=== PATIENT | female | born 1970 | race Caucasian/White ===

== ENCOUNTER 2016-09-11 20:12 | Emergency (ER) | payer OTHER ==
[~2016-09-11] VITALS: Ht 165.1 cm; Wt 90.0 kg
[~2016-09-11 20:12] MED LIST: CHANTIX1 MG PO; CLEOCIN300 MG PO; CYCLOBENZAPR10 MG PO; FE TABS325 MG PO; FLEXERIL PO; FLEXERIL10 MG PO; LORTAB 1010 MG PO; LORTAB5 PO; NAPROSYN500 MG PO; NEXIUM40 M1 PO; NO HOME MEDS; NORCO1 TA2 PO; NORCO1 TAB PO; PEPCID20 MG PO; PREVACID15 M1 PO; PRILOSEC20 MG OR; PRILOSEC20 MG PO; PROTONIX40 M2 PO; TORADOL OR; ULTRAM50 M1 PO; ULTRAM50 MG OR; VICOPROFEN OR; ZOFRAN4 MG OR; ZPAK PO
[2016-09-11 22:25] VITALS: BP 154/88
== END 2016-09-11 22:28 | disposition home or self-care (01) | DRG 563 ==
LOC: ED 20:12
DX: S39.012A Strain of muscle, fascia and tendon of lower back, initial encounter (principal); F17.210 Nicotine dependence, cigarettes, uncomplicated; G89.29 Other chronic pain; M54.5 Low back pain; K21.9 Gastro-esophageal reflux disease without esophagitis; X58.XXXA Exposure to other specified factors, initial encounter; Z87.442 Personal history of urinary calculi

== ENCOUNTER 2017-02-08 14:26 | Emergency (ER) | payer OTHER ==
[~2017-02-08] VITALS: Ht 165.1 cm; Wt 80.0 kg
[~2017-02-08 14:26] MED LIST changes: +HYDROCODONE/ACE1 TAB PO; +TRAMADOL HCL50 MG PO
[2017-02-08] MEDS ORDERED: FLEXERIL PO (15:07)
[2017-02-08] MEDS ORDERED: HYDROCODONE/ACE1 TAB PO (15:07)
[2017-02-08 15:30] VITALS: BP 129/77
== END 2017-02-08 15:30 | disposition home or self-care (01) | DRG 93 ==
LOC: ED 14:26
DX: G89.29 Other chronic pain (principal); M54.5 Low back pain; F17.210 Nicotine dependence, cigarettes, uncomplicated; K21.9 Gastro-esophageal reflux disease without esophagitis; Z87.442 Personal history of urinary calculi

== ENCOUNTER 2017-08-03 09:03 | Emergency (ER) | payer MEDICAID ==
[~2017-08-03] VITALS: Ht 165.1 cm; Wt 100.0 kg
[~2017-08-03 09:03] MED LIST changes: +BACTRIM DS1 TAB PO; +PERCOCET 5/325M1 TAB PO; +PREDNISONE5 M2; +PROAIR HFA IN; +PROVENTIL0.083 % IN; +SPIRIVA HANDIHALER IN; +TORADOL PO; +TYLENOL & COD12.5 ML PO; +TYLENOL PM PO; +WELLBUTRIN100 M2 PO
[2017-08-03 09:53] LABS: IMMATURE GRANULOCYTES 0.5 % (0.0-1.0); MEAN CORPUSCULAR HGB 29.5 pG CALC (26.0-32.0); MEAN CORPUSCULAR HGB CONC 32.2 g/L CALC (32.0-36.0); NEUT# 5.06 thou/uL (2.00-7.15); RED BLOOD COUNT 4.74 mill/uL (4.20-5.60)
[2017-08-03 09:55] LABS: HEMATOCRIT 43.5 % (37.0-47.0); MEAN CELL VOLUME 91.8 fL CALC (80.0-100.0)
[2017-08-03 09:55] LABS: URINE BILIRUBIN - DIPSTICK NEGATIVE (NEGATIVE); URINE BLOOD DIPSTICK MODERATE (NEGATIVE); URINE COLOR YELLOW; URINE GLUCOSE - DIPSTICK NEGATIVE (NEGATIVE); URINE KETONE NEGATIVE (NEGATIVE); URINE LEUK ESTERASE NEGATIVE (NEGATIVE); URINE NITRITE - DIPSTICK NEGATIVE (Negative); URINE PH 5.5 (4.5-8.0); URINE PROTEIN - DIPSTICK NEGATIVE (NEG-TRACE); URINE SPECIFIC GRAVITY 1.015; URINE UROBILINOGEN - DIPSTICK 0.2 E.U./dL (0.2)
[2017-08-03 09:56] LABS: URINE CLARITY SL CLOUDY
[2017-08-03 09:57] LABS: URINE EPITHELIAL CELLS RARE EPI/hpf (0-FEW)
[2017-08-03 10:11] LABS: ALBUMIN 3.9 g/dL (3.2-5.0); ALKALINE PHOSPHATASE 71 u/l (38-126); AMYLASE 79 u/l (30-110); ANION GAP 18 (6-22 (CALC)); BILIRUBIN, TOTAL 0.2 mg/dL (0.0-1.4); BUN 17 mg/dL (7-17); BUN/CREATININE RATIO 24 (12-20 (CALC)); CARBON DIOXIDE 23 mmol/l (22-30); CHLORIDE 105 mmol/l (95-108); CREATININE 0.7 mg/dL (0.5-1.0); GFR > 60 ML/MIN (>=60 (CALC)); GFR FOR AFR.AMER. > 60 ML/MIN (>=60 (CALC)); LIPASE 233 u/l (23-300); SGOT/AST 20 u/l (14-36); SGPT/ALT 29 u/l (9-52); SODIUM 142 mmol/l (137-146); TOTAL PROTEIN 7.3 g/dL (6.3-8.2)
[2017-08-03 10:19] LABS: POTASSIUM 3.7 mmol/l (3.5-5.1)
[2017-08-03 10:22] LABS: MYOGLOBIN 18 ng/mL (0 - 62)
[2017-08-03] MEDS ORDERED: ZOFRAN ODT4 MG PO (10:39)
[2017-08-03] MEDS ORDERED: IMODIUM2 MG PO (10:39)
[2017-08-03] MEDS ORDERED: TAMSULOSIN0.4 MG PO (10:39)
[2017-08-03] MEDS ORDERED: CIPROFLOXACN750 MG PO (10:39)
[2017-08-03 11:01] VITALS: BP 145/76
== END 2017-08-03 11:10 | disposition home or self-care (01) | DRG 392 ==
LOC: ED 09:03
PROVIDERS: Emergency Medicine
DX: R10.32 Left lower quadrant pain (principal); N20.0 Calculus of kidney; R11.2 Nausea with vomiting, unspecified; R19.7 Diarrhea, unspecified

== ENCOUNTER → 2018-06-29 | Outpatient (REF) | payer MEDICAID ==
[~2018-06-29] MED LIST changes: +AMLODIPINE10 MG PO; +CIPROFLOXACN750 MG PO; +HYDROXYZ HCL50 MG PO; +IMODIUM2 MG PO; +LOSARTAN POT50 MG PO; +PROAIR HFA108 MCG/AC; +TAMSULOSIN0.4 MG PO; +ZOFRAN ODT4 MG PO
[2018-06-29 10:51] LABS: BARBITURATES NEGATIVE (NEGATIVE); COCAINE NEGATIVE (NEGATIVE); METHADONE NEGATIVE (NEGATIVE); OXCYCODONE NEGATIVE (NEGATIVE); TETRAHYDROCANNABIONOL NEGATIVE (NEGATIVE); TRICYLIC ANTIDEPRESSANTS NEGATIVE (NEGATIVE)
[2018-06-29 11:01] VITALS: BP 151/104
== END | disposition home or self-care (01) | DRG 950 ==
LOC: PAIN/MGT 10:34
PROVIDERS: ATTEND Anesthesiology Pain Medicine
DX: Z51.81 Encounter for therapeutic drug level monitoring (principal); Z79.891 Long term (current) use of opiate analgesic

== ENCOUNTER 2018-08-04 05:42 | Day surgery (SDC) | payer MEDICAID ==
[~2018-08-04 05:42] MED LIST changes: +GABAPENTIN300 M2
[2018-08-04 07:41] VITALS: BP 117/67
== END 2018-08-04 08:10 | disposition home or self-care (01) ==
LOC: ORM 05:42
PROVIDERS: ATTEND Anesthesiology Pain Medicine
DX: M54.16 Radiculopathy, lumbar region (principal); M96.1 Postlaminectomy syndrome, not elsewhere classified; M79.605 Pain in left leg; M79.604 Pain in right leg; V89.2XXS Person injured in unspecified motor-vehicle accident, traffic, sequela; B02.9 Zoster without complications
CPT/HCPCS: Q9967

== ENCOUNTER 2018-08-11 06:34 | Day surgery (SDC) | payer MEDICAID ==
[2018-08-11 11:20] VITALS: BP 141/68
== END 2018-08-11 09:52 | disposition home or self-care (01) ==
LOC: ORM 06:34
PROVIDERS: ATTEND Anesthesiology Pain Medicine
DX: B02.29 Other postherpetic nervous system involvement (principal)
CPT/HCPCS: Q9967

== ENCOUNTER 2018-08-18 05:56 | Day surgery (SDC) | payer MEDICAID ==
[~2018-08-18] VITALS: Ht 165.1 cm; Wt 95.3 kg
[2018-08-18 08:06] VITALS: BP 150/90
== END 2018-08-18 08:08 | disposition home or self-care (01) ==
LOC: ORM 05:56
PROVIDERS: ATTEND Anesthesiology Pain Medicine
DX: M54.16 Radiculopathy, lumbar region (principal); M96.1 Postlaminectomy syndrome, not elsewhere classified; M79.605 Pain in left leg; M79.604 Pain in right leg; V89.2XXS Person injured in unspecified motor-vehicle accident, traffic, sequela
CPT/HCPCS: Q9967

== ENCOUNTER 2018-10-06 07:45 | Day surgery (SDC) | payer MEDICAID ==
[2018-10-06] MEDS ORDERED: HYDROCODONE/ACE1 TAB PO (09:27)
[2018-10-06 09:54] VITALS: BP 106/65
== END 2018-10-06 10:20 | disposition home or self-care (01) ==
LOC: ORM 07:45
PROVIDERS: ATTEND Anesthesiology Pain Medicine
DX: M54.16 Radiculopathy, lumbar region (principal); M96.1 Postlaminectomy syndrome, not elsewhere classified; M79.605 Pain in left leg; M79.604 Pain in right leg
CPT/HCPCS: Q9967

== ENCOUNTER 2020-05-16 07:20 | Day surgery (SDC) | payer MEDICAID ==
[~2020-05-16] VITALS: Ht 165.1 cm; Wt 91.2 kg
[~2020-05-16 07:20] MED LIST changes: +MEDDOSEPAK PO; +TRAZODONE100 MG PO; +VISTARIL 50MG C50 M1 PO; +[UNRECOGNIZED DRUG - OTHER] MT
[2020-05-16 11:10] VITALS: BP 124/94
[2020-05-29] MEDS ORDERED: HYDROCODONE/ACE1 TAB PO (11:19)
== END 2020-05-16 10:50 | disposition home or self-care (01) ==
LOC: ORM 07:20
PROVIDERS: ATTEND Anesthesiology Pain Medicine
DX: M76.31 Iliotibial band syndrome, right leg (principal); M76.32 Iliotibial band syndrome, left leg; Z01.84 Encounter for antibody response examination; M70.72 Other bursitis of hip, left hip; M70.71 Other bursitis of hip, right hip

== ENCOUNTER 2021-07-31 06:59 | Day surgery (SDC) | payer MEDICAID ==
[~2021-07-31 06:59] MED LIST changes: +DICLOFENAC50 MG PO; +PROMETHAZINE12.5 MG PO
[2021-07-31] MEDS ORDERED: GABAPENTIN100 MG PO (07:17)
[2021-07-31] MEDS ORDERED: METFORMIN500 M2 PO (07:18)
[2021-07-31 11:21] VITALS: BP 192/110
== END 2021-07-31 08:55 | disposition home or self-care (01) ==
LOC: ORM 06:59
PROVIDERS: ATTEND Physical Medicine & Rehabilitation
DX: M46.1 Sacroiliitis, not elsewhere classified (principal); G89.4 Chronic pain syndrome; M96.1 Postlaminectomy syndrome, not elsewhere classified; M79.2 Neuralgia and neuritis, unspecified; M54.9 Dorsalgia, unspecified; M79.18 Myalgia, other site
CPT/HCPCS: Q9967

== ENCOUNTER 2022-03-26 07:56 | Day surgery (SDC) | payer MEDICAID ==
[~2022-03-26] VITALS: Ht 165.1 cm; Wt 88.9 kg
[~2022-03-26 07:56] MED LIST changes: +GABAPENTIN100 MG PO; +METFORMIN500 M2 PO; -PROAIR HFA108 MCG/AC
[2022-03-26 11:12] VITALS: BP 121/73
== END 2022-03-26 10:55 | disposition home or self-care (01) ==
LOC: ORM 07:56
PROVIDERS: ATTEND Physical Medicine & Rehabilitation Pain Medicine
DX: M46.1 Sacroiliitis, not elsewhere classified (principal)
CPT/HCPCS: G0260; Q9967

== ENCOUNTER 2022-05-28 08:16 | Day surgery (SDC) | payer MEDICAID ==
[~2022-05-28] VITALS: Ht 165.1 cm; Wt 89.8 kg
[2022-05-28 11:53] VITALS: BP 123/80
== END 2022-05-28 10:30 | disposition home or self-care (01) ==
LOC: ORM 08:16
PROVIDERS: ATTEND Physical Medicine & Rehabilitation
DX: M46.1 Sacroiliitis, not elsewhere classified (principal); M54.16 Radiculopathy, lumbar region; G89.4 Chronic pain syndrome; M96.1 Postlaminectomy syndrome, not elsewhere classified; M79.18 Myalgia, other site
CPT/HCPCS: J1100; Q9966

== ENCOUNTER 2022-10-08 06:39 | Day surgery (SDC) | payer MEDICAID ==
[~2022-10-08] VITALS: Ht 165.1 cm; Wt 88.9 kg
[2022-10-08] MEDS ORDERED: TOPROL XL50 MG PO (07:13)
[2022-10-08] MEDS ORDERED: EFFIENT10 MG PO (07:13)
[2022-10-08] MEDS ORDERED: BAYER ASPIRIN E81 MG PO (07:14)
[2022-10-08] MEDS ORDERED: CYCLOBENZAPRINE10 MG PO (07:15)
[2022-10-08] MEDS ORDERED: ISOSORB DIN20 MG PO (07:16)
[2022-10-08] MEDS ORDERED: LYRICA100 MG PO (07:16)
[2022-10-08 10:50] VITALS: BP 166/90
== END 2022-10-08 08:45 | disposition home or self-care (01) ==
LOC: ORM 06:39
PROVIDERS: ATTEND Physical Medicine & Rehabilitation Pain Medicine
DX: M53.3 Sacrococcygeal disorders, not elsewhere classified (principal); G89.4 Chronic pain syndrome
CPT/HCPCS: Q9967

== ENCOUNTER 2023-02-18 08:14 | Day surgery (SDC) | payer MEDICAID ==
[~2023-02-18] VITALS: Ht 165.1 cm; Wt 95.3 kg
[~2023-02-18 08:14] MED LIST changes: +BAYER ASPIRIN E81 MG PO; +CYCLOBENZAPRINE10 MG PO; +EFFIENT10 MG PO; +ISOSORB DIN20 MG PO; +LYRICA100 MG PO; +TOPROL XL50 MG PO
[2023-02-18] MEDS ORDERED: [UNRECOGNIZED DRUG - OTHER] PO (08:38)
[2023-02-18] MEDS ORDERED: [UNRECOGNIZED DRUG - OTHER] SC (08:40)
[2023-02-18 12:30] VITALS: BP 152/57
== END 2023-02-18 10:43 | disposition home or self-care (01) ==
LOC: ORM 08:14
PROVIDERS: ATTEND Student in an Organized Health Care Education/Training Program
DX: M47.897 Other spondylosis, lumbosacral region (principal); G89.4 Chronic pain syndrome; M96.1 Postlaminectomy syndrome, not elsewhere classified; M79.2 Neuralgia and neuritis, unspecified; M54.9 Dorsalgia, unspecified; M79.18 Myalgia, other site; M46.1 Sacroiliitis, not elsewhere classified

== ENCOUNTER 2023-04-22 07:00 | Day surgery (SDC) | payer MEDICAID ==
[~2023-04-22] VITALS: Ht 165.1 cm; Wt 93.0 kg
[~2023-04-22 07:00] MED LIST changes: -LOSARTAN POT50 MG PO; +LOSARTAN/HCT1 TA1 PO; +[UNRECOGNIZED DRUG - OTHER] PO; +[UNRECOGNIZED DRUG - OTHER] SC
[2023-04-22] MEDS ORDERED: VENTOLIN HFA108 MCG IN (07:21)
[2023-04-22] MEDS ORDERED: OMEPRAZOLE DR40 MG PO (07:33)
[2023-04-22 10:24] VITALS: BP 155/101
== END 2023-04-22 09:10 | disposition home or self-care (01) ==
LOC: ORM 07:00
DX: G89.4 Chronic pain syndrome (principal); M96.1 Postlaminectomy syndrome, not elsewhere classified; M79.2 Neuralgia and neuritis, unspecified; M54.9 Dorsalgia, unspecified; M79.18 Myalgia, other site; M46.1 Sacroiliitis, not elsewhere classified

== ENCOUNTER 2023-05-20 07:02 | Day surgery (SDC) | payer MEDICAID ==
[~2023-05-20] VITALS: Ht 165.1 cm; Wt 93.0 kg
[~2023-05-20 07:02] MED LIST changes: +OMEPRAZOLE DR40 MG PO; +VENTOLIN HFA108 MCG IN
[2023-05-20] MEDS ORDERED: MIDAZOLAM HCL 2 MG/2 ML VIAL ONE (07:30)
[2023-05-20] MEDS ORDERED: SODIUM CHLORIDE 0.9% 10 ML SYR ONE ×2 (07:31→07:33)
[2023-05-20] MEDS ORDERED: LIDOCAINE HCL 1% (10MG/ML) 100 MG/10 ML MDV ONE (08:56)
[2023-05-20 10:16] VITALS: BP 167/102
== END 2023-05-20 09:10 | disposition home or self-care (01) ==
LOC: ENDO 07:02 → ORM 08:00 → ENDO 09:10
PROVIDERS: ATTEND Student in an Organized Health Care Education/Training Program
DX: G89.4 Chronic pain syndrome (principal); M96.1 Postlaminectomy syndrome, not elsewhere classified; M79.2 Neuralgia and neuritis, unspecified; M54.9 Dorsalgia, unspecified; M79.18 Myalgia, other site; M46.1 Sacroiliitis, not elsewhere classified

== ENCOUNTER 2023-12-30 06:45 | Day surgery (SDC) | payer SELFPAY ==
[~2023-12-30] VITALS: Ht 165.1 cm; Wt 93.4 kg
[2023-12-30] MEDS ORDERED: ELIQUIS5 MG PO (07:04)
[2023-12-30] MEDS ORDERED: SODIUM CHLORIDE 0.9% 10 ML SYR ONE (07:06)
[2023-12-30] MEDS ORDERED: MIDAZOLAM HCL 2 MG/2 ML VIAL ONE (07:06)
[2023-12-30] MEDS ORDERED: LIDOCAINE HCL 1% (10MG/ML) 100 MG/10 ML MDV ONE (07:09)
[2023-12-30] MEDS ORDERED: DEXAMETHASONE SODIUM PHOSPHATE PF 10 MG/ML SDV ONE (07:09)
[2023-12-30] MEDS ORDERED: Iopamidol 61% 5 ML SYR IV ONE (07:12)
[2023-12-30] MEDS ORDERED: SODIUM CHLORIDE 20 ML/VIAL SDV ONE (07:12)
[2023-12-30] MEDS ORDERED: SODIUM CHLORIDE 0.9% 500 ML IV ONE (07:37)
[2023-12-30 08:44] VITALS: BP 153/93
== END 2023-12-30 08:16 | disposition home or self-care (01) | DRG 93 ==
LOC: ORM 06:45
PROVIDERS: ATTEND Student in an Organized Health Care Education/Training Program
DX: G89.4 Chronic pain syndrome (principal); M96.1 Postlaminectomy syndrome, not elsewhere classified; M79.2 Neuralgia and neuritis, unspecified; M54.9 Dorsalgia, unspecified; M79.18 Myalgia, other site; M46.1 Sacroiliitis, not elsewhere classified
CPT/HCPCS: J1100; Q9967